=== PATIENT | male | born 1970 | race Caucasian/White ===

== ENCOUNTER → 2019-10-28 15:24 | Outpatient (BNVA) | payer BC, SELFPAY | PROVIDERS: PCP Internal Medicine Rheumatology; Referring Provider Nurse Practitioner Family; Visit Provider Internal Medicine Rheumatology | DX: M19.90 Unspecified osteoarthritis, unspecified site (principal); Z11.59 Encounter for screening for other viral diseases; Z79.899 Other long term (current) drug therapy; Z11.1 Encounter for screening for respiratory tuberculosis; M25.541 Pain in joints of right hand; M25.542 Pain in joints of left hand; M75.40 Impingement syndrome of unspecified shoulder; M67.88 Other specified disorders of synovium and tendon, other site; M67.979 Unspecified disorder of synovium and tendon, unspecified ankle and foot; R53.1 Weakness | CPT/HCPCS: 36415; 82085; 82306; 82550; 84550; 85651; 86140; 86431; 86480; 86704; 86803; 86812; 87340; 99204 ==

== ENCOUNTER 2019-10-31 14:44 | Outpatient (CLI) | payer SELFPAY ==
--- NOTE | 2019-10-31 14:51 | XR_ITS ---
WS: [id number] Left foot, 3 views, 10/31/2019 Clinical Data: inflammatory arthritis Comparison: None. Findings: No fractures or dislocations are seen. No bone destruction or erosion is noted. The joint spaces and soft tissues are normal. No periarticular demineralization or calcification is seen. There is no evidence of inflammatory arth ritis. XR/XR foot LT min 3V* [id number] Impression: Negative left foot.
--- NOTE | 2019-10-31 14:51 | XR_ITS ---
WS: [id number] Right hand, 3 views, 10/31/2019 Clinical Data: inflammatory arthritis Comparison: None. Findings: No fractures or dislocations are seen. The epiphyses are normal. The soft tissues are unremarkable. T he joint spaces are normal. No periarticular demineralization or calcification is seen. XR/XR hand RT min 3V* [id number] Impression: Negative right hand. No evidence of inflammatory arthritis.
--- NOTE | 2019-10-31 14:51 | XR_ITS ---
WS: [id number] Right foot, 3 views, 10/31/2019 Clinical Data: inflammatory arthritis Comparison: None. Findings: No fractures or dislocations are seen. No bone destruction or erosion is noted. The joint spaces and soft tissues are normal. No periarticular demineralization or calcification is seen. There is no evidence of inflammatory arth ritis. XR/XR foot RT min 3V* [id number] Impression: Negative right foot.
--- NOTE | 2019-10-31 14:51 | XR_ITS ---
WS: [id number] Chest 2 views, 10/31/2019 Clinical Data: inflammatory arthritis Comparison: PA and Lateral chest, 01/13/2014. Findings: No nodules, masses or effusions are seen. The heart is normal. The pulmonary vascularity is not increased. No pneumonia or pneumothorax is seen. XR/XR chest 2V* [id number] Impression: Negative chest.
--- NOTE | 2019-10-31 14:51 | XR_ITS ---
WS: [id number] Left hand, 3 views, 10/31/2019 Clinical Data: inflammatory arthritis Comparison: None. Findings: No fractures or dislocations are seen. The epiphyses are normal. The soft tissues are unremarkable. T he joint spaces are normal. No periarticular demineralization or calcification is seen. There is no evidence of inflammatory arth ritis. XR/XR hand LT min 3V* [id number] Impression: Negative left hand.
== END 2019-10-31 14:45 | disposition home or self-care (01) ==
LOC: RADWPI 14:51
PROVIDERS: PCP Nurse Practitioner Family; Visit Provider Internal Medicine Rheumatology
DX: M13.89 Other specified arthritis, multiple sites (principal)
CPT/HCPCS: 71046; 73130; 73630

== ENCOUNTER → 2019-11-06 15:29 | Outpatient (BNVA) | payer BC, SELFPAY | PROVIDERS: PCP Nurse Practitioner Family; Visit Provider Internal Medicine Rheumatology | DX: M25.50 Pain in unspecified joint (principal); R79.82 Elevated C-reactive protein (CRP); Z79.899 Other long term (current) drug therapy; M75.40 Impingement syndrome of unspecified shoulder; M67.88 Other specified disorders of synovium and tendon, other site | CPT/HCPCS: 36415; 85651; 86140; 99214 ==

== ENCOUNTER → 2019-12-04 11:00 | Outpatient (BNVA) | payer SELFPAY | PROVIDERS: PCP Nurse Practitioner Family; Visit Provider Nurse Practitioner | DX: I10 Essential (primary) hypertension (principal); M79.7 Fibromyalgia | CPT/HCPCS: 82607; 83540; 83735 ==

== ENCOUNTER → 2020-02-10 11:02 | Outpatient (BNVA) | payer SELFPAY | PROVIDERS: PCP Nurse Practitioner Family; Visit Provider Nurse Practitioner | DX: R19.7 Diarrhea, unspecified (principal) | CPT/HCPCS: 87205; 87506 ==

== ENCOUNTER → 2020-03-12 16:48 | Outpatient (BNVA) | payer SELFPAY | PROVIDERS: PCP Nurse Practitioner Family; Visit Provider Nurse Practitioner | DX: E55.9 Vitamin D deficiency, unspecified (principal); M25.50 Pain in unspecified joint; M79.7 Fibromyalgia | CPT/HCPCS: 82306; 85651 ==

== ENCOUNTER → 2020-09-28 09:37 | Outpatient (BNVA) | payer SELFPAY | PROVIDERS: PCP Nurse Practitioner Family; Visit Provider Nurse Practitioner | DX: I10 Essential (primary) hypertension (principal); E55.9 Vitamin D deficiency, unspecified; M79.7 Fibromyalgia | CPT/HCPCS: 80053; 82306; 84443; 85025 ==

== ENCOUNTER → 2021-03-16 09:51 | Outpatient (BNVA) | payer SELFPAY | PROVIDERS: PCP Nurse Practitioner Family; Visit Provider Dermatology | DX: Z01.89 Encounter for other specified special examinations (principal) ==

== ENCOUNTER → 2021-06-15 08:52 | Outpatient (BNVA) | payer SELFPAY | PROVIDERS: PCP Dermatology; Visit Provider Dermatology | DX: Z01.89 Encounter for other specified special examinations (principal) ==

== ENCOUNTER → 2021-10-07 09:56 | Outpatient (BNVA) | payer BC, SELFPAY | PROVIDERS: PCP Dermatology; Visit Provider Nurse Practitioner | DX: M79.7 Fibromyalgia (principal); I10 Essential (primary) hypertension; R00.0 Tachycardia, unspecified | CPT/HCPCS: 80053; 80061 ==

== ENCOUNTER → 2022-06-07 08:29 | Outpatient (BNVA) | payer SELFPAY | PROVIDERS: PCP Dermatology; Visit Provider Dermatology | DX: Z01.89 Encounter for other specified special examinations (principal); E78.2 Mixed hyperlipidemia; E55.9 Vitamin D deficiency, unspecified; M79.7 Fibromyalgia; I10 Essential (primary) hypertension; M25.50 Pain in unspecified joint; M75.40 Impingement syndrome of unspecified shoulder; R53.1 Weakness ==

== ENCOUNTER 2022-07-01 09:37 | Inpatient (IN) | payer BC, SELFPAY ==
[2022-07-01] VITALS (19 sets, daily range): BP systolic 89–114; BP diastolic 46–71; PULSE 83–106; RESP 13–17; TEMP 36.2–36.6; O2SAT 88–99; BMI 30.1
--- NOTE | 2022-07-01 10:06 | W.ED.GENADLT ---
Documented by User: Paty Siddiqui PA-C 07/01/22 13:36 HPI - General Adult General: Chief complaint: General Medical Stated complaint: no bwel moment and has not eaten since Monday. Time Seen by Provider: 07/01/22 10:05 Source: patient and family Mode of arrival: ambulatory Limitations: no limitations History of Present Illness: 51-year-old male presents to the ER today for abdominal pain x4 days. Patient reports he had loose stools and diarrhea last Monday and Monday. Patient reports he then felt little bit better Monday evening and ate to pretty good meals. Patient reports by Monday he was unable to have a bowel movement and was having increased abdominal pain. Patient reports he tried taking MiraLAX, Ex-Lax, stool softeners, enemas, suppositories and still could not have a bowel movement. Patient reports he is bloated. He reports he started dry heaving yesterday. Patient reports he has not eaten anything since Monday night. He reports he has been sipping on Gatorade and urinating normally. Patient reports he has had this before however typically stool softeners and Ex-Lax take care of it. Patient denies any fever or chills. He reports abdominal pain specifically in the right lower quadrant. Review of Systems General: Reports: 10 or more systems reviewed and unremarkable except in HPI and below PFSH ED PFSH: Medical History Arthralgia of both hands Encounter for screening for other viral diseases Enthesitis Generalized weakness Hyperlipidemia, mixed Hypertension Peroneal tendinosis Polyarthralgia 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 Surgical History No history of previous surgery Family History Father Cancer Mother Diabetes Denies family history of Rheumatoid arthritis Lupus Social History Smoking and tobacco status: former smoker Second hand smoke exposure: No Smoking risk assessment/counseling performed?: No Alcohol intake: never Desire information about alcohol rehabilitation?: No Counseling given: No Desire information about substance/drug rehabilitation?: No Counseling given: No Caregiver/support person: No Lives independently: Yes Household members: children Housing: House Marital status: Single Number of children: 1 service: No Current occupational status: unemployed History of recent travel: No Current gender identity: Male Physical Exam Const: COMMON NORMALS: average body habitus, patient oriented x3, no limitations, healthy appearing, alert and well nourished; apparent distress (pt appears uncomfortable) HENMT: COMMON NORMALS: normocephalic and atraumatic HEAD & SCALP: normocephalic and atraumatic Eye: COMMON NORMALS: conjunctivae normal CONJUNCTIVA: Yes conjunctivae normal Neck/C-Spine: COMMON NORMALS: full ROM and no lymphadenopathy Resp: COMMON NORMALS: normal respiratory effort, No retractions and clear to auscultation bilaterally AUSCULTATION: clear to auscultation bilaterally Cardio: COMMON NORMALS: regular rate, regular rhythm and No murmurs present (Cardio) RATE: regular rate RHYTHM: regular rhythm GI: AUSCULTATION: Yes Hypoactive bowel sounds present PALPATION: Yes Firmness to palpation present (GI) and Yes Tenderness to palpation present (GI) (RLQ, lower abdomen) Neuro: COMMON NORMALS: patient oriented x3 SENSORIUM/ORIENTATION: Yes alert Psych: COMMON NORMALS: mental status grossly normal, Normal thought process present and cooperative THOUGHT PROCESS: Normal thought process present Skin: COMMON NORMALS: no rashes or lesions noted and no wounds GENERAL SKIN EXAM: no rashes or lesions noted Course ED course: 51-year-old male presents to the ER today for no bowel movement x4 days. Patient reports increasing abdominal pain, specifically in the right lower quadrant. Patient reports this started with diarrhea on Monday and Monday. Patient reports some vomiting and dry heaves over the last 24 hours. He has not eaten since Monday. Patient denies any fevers. Given the distention and cysts right lower quadrant tenderness we will get a CT abdomen pelvis at this time. We will also do labs today. Reevaluation(s): Reevaluation #1: Patient's white count is 25,000 and creatinine is 3.7. I discussed this patient with Dr. Quintero. He recommends sepsis protocol at this time. Orders changed. We will do a CT abdomen pelvis without contrast Time: 11:29 Reevaluation #2: Radiologist Dr. Nicholas, patient has a acute appendicitis with her. He reports is also an ileus of the small bowel in that area. He does not see any abscess or drainable area but reports overall stranding and inflammation. Reports mild fluid in the pelvic area. Time: 11:57 Reevaluation #3: I spoke with Dr. Trujillo who will see patient in the ER and take him to surgery. He wants him to have 2 L total of fluid. Continue the Zosyn as started. Vital Signs: Vital signs: Vital Signs Temperature 97.3 F L 07/02/22 08:00 Pulse Rate 82 07/02/22 08:00 Respiratory Rate 18 07/02/22 08:00 Blood Pressure 133/69 07/02/22 09:42 Pulse Oximetry 96 07/02/22 08:00 Oxygen Delivery Me thod 07/02/22 08:00 Oxygen Flow Rate 2 07/01/22 20:00 Fraction of Inspir ed Oxygen 1 07/01/22 16:49 MDM - General Adult Medical Decision Making CT reveals a ruptured appendicitis. Patient has significantly elevated white count in addition to acute kidney injury/sepsis. Patient has been given 2 L of fluid in the ER. Dr. Mehta will take patient to surgery and only wants patient having the 2 L of fluid at this time. Patient appears comfortable currently. Patient is hypotensive but that has improved slightly with [address] Mehta will see patient in the ER before surgery. Lab Data : 07/02/22 04:02 07/02/22 04:02 Radiology Impressions Abdomen/Pelvis CT 07/01/22 10:14 IMPRESSION: 1. Perforated appendicitis RIGHT lower quadrant with surrounding inflammatory stranding and edema. Appendicoliths in the appendix. 2. No well-defined drainable fluid collection or abscess. 3. Proximal small bowel dilatation with air-fluid levels likely reactive adynamic ileus. Small bowel measures up to 3.9 cm in maximum dimension. Distal ileum appears decompressed. 4. Compressive atelectasis LEFT lower lobe.Correlation for pneumonia. 5. Indeterminant low-attenuation RIGHT renal lesion measuring 10 mm. This is too small to definitively characterize. This can be followed up with ultrasound or contrast-enhanced CT abdomen pelvis. 6. Grade 1 anterolisthesis L5 on S1 with chronic spondylolysis. Notified Paty Siddiqui PA-C at 07/01/2022 11:50 AM. Laboratory Results WBC 25.9 10^3/uL (4.0-10.0) H 07/01/22 10:13 RBC 5.16 10^6/uL (4.1-5.3) 07/01/22 10:13 Hgb 16.2 g/dL (11.7-16.6) 07/01/22 10:13 Hct 47.0 % (42.0-52.0) 07/01/22 10:13 MCV 91.1 fl (80-94) 07/01/22 10:13 MCH 31.4 pg (28.0-34.0) 07/01/22 10:13 MCHC 34.5 g/dL (30.0-36.0) 07/01/22 10:13 RDW 13.4 % (12.1-15.1) 07/01/22 10:13 Plt Count 345 10^3/cmm (130-400) 07/01/22 10:13 MPV 11.0 fL (7.4-10.4) H 07/01/22 10:13 Neut % (Auto) 86.4 % 07/01/22 10:13 Lymph % (Auto) 5.4 % 07/01/22 10:13 Bailey % (Auto) 7.2 % 07/01/22 10:13 Eos % (Auto) 0.2 % 07/01/22 10:13 Baso % (Auto) 0.1 % 07/01/22 10:13 Neut # (Auto) 22.32 10^3/uL (1.8-7.7) H 07/01/22 10:13 Lymph # (Auto) 1.4 10^3/uL (0.8-4.8) 07/01/22 10:13 Bailey # (Auto) 1.9 10^3/uL (0.2-0.9) H 07/01/22 10:13 Eos # (Auto) 0.1 10^3/uL (0.0-0.8) 07/01/22 10:13 Baso # (Auto) 0.0 10^3/uL (0.0-0.1) 07/01/22 10:13 Nucleated RBC % (auto) 0 % 07/01/22 10:13 Nucleated RBCs # 0.0 /100WBC 07/01/22 10:13 Specimen Type Arterial 07/01/22 11:17 Sample Site Radial, right 07/01/22 11:17 ABG pH 7.43 (7.35-7.45) 07/01/22 11:17 ABG pCO2 33.5 mmHg (35-45) L 07/01/22 11:17 ABG pO2 63.0 mmHg (80.0-100.0) L 07/01/22 11:17 ABG HCO3 22.0 mmol/L (22-26) 07/01/22 11:17 ABG O2 Saturation 92.2 07/01/22 11:17 ABG Base Excess -1.6 mmol/L (-2.0-2.0) 07/01/22 11:17 Bassam Test Pos 07/01/22 11:17 A-a O2 Gradient 6.1 mmHg (5-10) 07/01/22 11:17 Hematocrit 48.4 % (42-52) 07/01/22 11:17 Hgb O2 Saturation 90.9 % (95-100) L 07/01/22 11:17 Carboxyhemoglobin 1.2 %THgb (0.4-20.1) 07/01/22 11:17 Methemoglobin 0.2 % (0.4-1.5) L 07/01/22 11:17 Total Hemoglobin 15.8 g/dL (14-18) 07/01/22 11:17 Sodium 137.0 mmol/L (131-143) 07/01/22 11:17 Potassium 3.7 mmol/L (3.5-5.0) 07/01/22 11:17 Glucose 131.0 mg/dL (70-115) H 07/01/22 11:17 Ionized Calcium 1.1 mmol/L (1.1-1.4) 07/01/22 11:17 O2 Delivery Device Room air 07/01/22 11:17 FiO2 21.0 % 07/01/22 11:17 College Service Officer ID glc 07/01/22 11:17 Sodium 136 mmol/L (136-145) 07/01/22 10:13 Potassium 4.1 mmol/L (3.5-5.1) 07/01/22 10:13 Chloride 94 mmol/L (98-107) L 07/01/22 10:13 Carbon Dioxide 23 mmol/L (22-29) 07/01/22 10:13 Anion Gap 23.1 (5-19) H 07/01/22 10:13 BUN 74 mg/dL (6-20) H 07/01/22 10:13 Creatinine 3.7 mg/dL (0.7-1.2) H 07/01/22 10:13 GFR Calculation 17.5 mL/min (90-130) L 07/01/22 10:13 Glucose 137 mg/dL (65-115) H 07/01/22 10:13 Calculated Osmolality 306 mOsm/kg (285-295) H 07/01/22 10:13 Lactic Acid 1.8 mmol/L (0.5-2.2) 07/01/22 10:30 Calcium 9.2 mg/dL (8.5-10.5) 07/01/22 10:13 Total Bilirubin 0.5 mg/dL (0.15-1.2) 07/01/22 10:13 AST 8 U/L (0-40) 07/01/22 10:13 ALT 9 U/L (0-41) 07/01/22 10:13 Alkaline Phosphatase 94 U/L (40-130) 07/01/22 10:13 Total Protein 8.7 g/dL (6.6-8.7) 07/01/22 10:13 Albumin 3.7 g/dL (3.5-5.2) 07/01/22 10:13 Globulin 5.0 g/dL (1.3-4.6) H 07/01/22 10:13 Lipase 11 U/L (13-60) L 07/01/22 10:30 Critical Care Time Critical Care Time: Critical Care Time: No Discharge Plan Discharge Patient Disposition: Placed in Observation Admit Provider: Jc Trujillo Clinical Impression: Acute appendicitis with rupture, Acute kidney injury, Acute hypotension Coding Level of Care Code ED Extension Course Counselor for Chg Fwd Exam Comprehensive Documented by User: Luis Quintero DO 07/02/22 10:13 HPI - General Adult General: Chief complaint: General Medical Stated complaint: no bwel moment and has not eaten since Monday. Time Seen by Provider: 07/01/22 10:05 PFS ED PFSH: Medical History Arthralgia of both hands Encounter for screening for other viral diseases Enthesitis Generalized weakness Hyperlipidemia, mixed Hypertension Peroneal tendinosis Polyarthralgia 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 Surgical History No history of previous surgery Family History Father Cancer Mother Diabetes Denies family history of Rheumatoid arthritis Lupus Social History Smoking and tobacco status: former smoker Second hand smoke exposure: No Smoking risk assessment/counseling performed?: No Alcohol intake: never Desire information about alcohol rehabilitation?: No Counseling given: No Desire information about substance/drug rehabilitation?: No Counseling given: No Caregiver/support person: No Lives independently: Yes Household members: children Housing: House Marital status: Single Number of children: 1 service: No Current occupational status: unemployed History of recent travel: No Current gender identity: Male Course Vital Signs: Vital signs: Vital Signs Temperature 97.3 F L 07/02/22 08:00 Pulse Rate 82 07/02/22 08:00 Respiratory Rate 18 07/02/22 08:00 Blood Pressure 133/69 07/02/22 09:42 Pulse Oximetry 96 07/02/22 08:00 Oxygen Delivery Me thod 07/02/22 08:00 Oxygen Flow Rate 2 07/01/22 20:00 Fraction of Inspir ed Oxygen 1 07/01/22 16:49 MDM - General Adult Medical Decision Making CT reveals a ruptured appendicitis. Patient has significantly elevated white count in addition to acute kidney injury/sepsis. Patient has been given 2 L of fluid in the ER. Dr. Mehta will take patient to surgery and only wants patient having the 2 L of fluid at this time. Patient appears comfortable currently. Patient is hypotensive but that has improved slightly with [address] Mehta will see patient in the ER before surgery. Chart reviewed and patient discussed with midlevel. Agree with assessment and plan. Lab Data : 07/02/22 04:02 07/02/22 04:02 Radiology Impressions Abdomen/Pelvis CT 07/01/22 10:14 IMPRESSION: 1. Perforated appendicitis RIGHT lower quadrant with surrounding inflammatory stranding and edema. Appendicoliths in the appendix. 2. No well-defined drainable fluid collection or abscess. 3. Proximal small bowel dilatation with air-fluid levels likely reactive adynamic ileus. Small bowel measures up to 3.9 cm in maximum dimension. Distal ileum appears decompressed. 4. Compressive atelectasis LEFT lower lobe.Correlation for pneumonia. 5. Indeterminant low-attenuation RIGHT renal lesion measuring 10 mm. This is too small to definitively characterize. This can be followed up with ultrasound or contrast-enhanced CT abdomen pelvis. 6. Grade 1 anterolisthesis L5 on S1 with chronic spondylolysis. Notified Paty Siddiqui PA-C at 07/01/2022 11:50 AM. Laboratory Results WBC 25.9 10^3/uL (4.0-10.0) H 07/01/22 10:13 RBC 5.16 10^6/uL (4.1-5.3) 07/01/22 10:13 Hgb 16.2 g/dL (11.7-16.6) 07/01/22 10:13 Hct 47.0 % (42.0-52.0) 07/01/22 10:13 MCV 91.1 fl (80-94) 07/01/22 10:13 MCH 31.4 pg (28.0-34.0) 07/01/22 10:13 MCHC 34.5 g/dL (30.0-36.0) 07/01/22 10:13 RDW 13.4 % (12.1-15.1) 07/01/22 10:13 Plt Count 345 10^3/cmm (130-400) 07/01/22 10:13 MPV 11.0 fL (7.4-10.4) H 07/01/22 10:13 Neut % (Auto) 86.4 % 07/01/22 10:13 Lymph % (Auto) 5.4 % 07/01/22 10:13 Bailey % (Auto) 7.2 % 07/01/22 10:13 Eos % (Auto) 0.2 % 07/01/22 10:13 Baso % (Auto) 0.1 % 07/01/22 10:13 Neut # (Auto) 22.32 10^3/uL (1.8-7.7) H 07/01/22 10:13 Lymph # (Auto) 1.4 10^3/uL (0.8-4.8) 07/01/22 10:13 Bailey # (Auto) 1.9 10^3/uL (0.2-0.9) H 07/01/22 10:13 Eos # (Auto) 0.1 10^3/uL (0.0-0.8) 07/01/22 10:13 Baso # (Auto) 0.0 10^3/uL (0.0-0.1) 07/01/22 10:13 Nucleated RBC % (auto) 0 % 07/01/22 10:13 Nucleated RBCs # 0.0 /100WBC 07/01/22 10:13 Specimen Type Arterial 07/01/22 11:17 Sample Site Radial, right 07/01/22 11:17 ABG pH 7.43 (7.35-7.45) 07/01/22 11:17 ABG pCO2 33.5 mmHg (35-45) L 07/01/22 11:17 ABG pO2 63.0 mmHg (80.0-100.0) L 07/01/22 11:17 ABG HCO3 22.0 mmol/L (22-26) 07/01/22 11:17 ABG O2 Saturation 92.2 07/01/22 11:17 ABG Base Excess -1.6 mmol/L (-2.0-2.0) 07/01/22 11:17 Bassam Test Pos 07/01/22 11:17 A-a O2 Gradient 6.1 mmHg (5-10) 07/01/22 11:17 Hematocrit 48.4 % (42-52) 07/01/22 11:17 Hgb O2 Saturation 90.9 % (95-100) L 07/01/22 11:17 Carboxyhemoglobin 1.2 %THgb (0.4-20.1) 07/01/22 11:17 Methemoglobin 0.2 % (0.4-1.5) L 07/01/22 11:17 Total Hemoglobin 15.8 g/dL (14-18) 07/01/22 11:17 Sodium 137.0 mmol/L (131-143) 07/01/22 11:17 Potassium 3.7 mmol/L (3.5-5.0) 07/01/22 11:17 Glucose 131.0 mg/dL (70-115) H 07/01/22 11:17 Ionized Calcium 1.1 mmol/L (1.1-1.4) 07/01/22 11:17 O2 Delivery Device Room air 07/01/22 11:17 FiO2 21.0 % 07/01/22 11:17 College Service Officer ID glc 07/01/22 11:17 Sodium 136 mmol/L (136-145) 07/01/22 10:13 Potassium 4.1 mmol/L (3.5-5.1) 07/01/22 10:13 Chloride 94 mmol/L (98-107) L 07/01/22 10:13 Carbon Dioxide 23 mmol/L (22-29) 07/01/22 10:13 Anion Gap 23.1 (5-19) H 07/01/22 10:13 BUN 74 mg/dL (6-20) H 07/01/22 10:13 Creatinine 3.7 mg/dL (0.7-1.2) H 07/01/22 10:13 GFR Calculation 17.5 mL/min (90-130) L 07/01/22 10:13 Glucose 137 mg/dL (65-115) H 07/01/22 10:13 Calculated Osmolality 306 mOsm/kg (285-295) H 07/01/22 10:13 Lactic Acid 1.8 mmol/L (0.5-2.2) 07/01/22 10:30 Calcium 9.2 mg/dL (8.5-10.5) 07/01/22 10:13 Total Bilirubin 0.5 mg/dL (0.15-1.2) 07/01/22 10:13 AST 8 U/L (0-40) 07/01/22 10:13 ALT 9 U/L (0-41) 07/01/22 10:13 Alkaline Phosphatase 94 U/L (40-130) 07/01/22 10:13 Total Protein 8.7 g/dL (6.6-8.7) 07/01/22 10:13 Albumin 3.7 g/dL (3.5-5.2) 07/01/22 10:13 Globulin 5.0 g/dL (1.3-4.6) H 07/01/22 10:13 Lipase 11 U/L (13-60) L 07/01/22 10:30 Discharge Plan Discharge Patient Disposition: Placed in Observation Admit Provider: Jc Trujillo Clinical Impression: Acute appendicitis with rupture, Acute kidney injury, Acute hypotension Coding Level of Care Code ED Extension Course Counselor for Chg Fwd Exam Comprehensive
--- NOTE | 2022-07-01 10:14 | CT_ITS ---
WS: [id number] CT ABDOMEN PELVIS TECHNIQUE: Noncontrast CT of the abdomen and pelvis with coronal and sagittal reformatted images. CLINICAL INFORMATION: RLQ pain, no BM COMPARISON: None. DLP: 831.[address] scans at [facility] use at least one of these dose optimization techniques: automated e xposure control; mA and/or kV adjustment per patient size (includes targeted exams where dose is matc hed to clinical indication); or iterative reconstruction. FINDINGS: Inflammatory stranding and edema in the RIGHT lower quadrant about the appendix compatible with perforated appendicitis. Small appendicoliths. No well-defined drainable abscess or fluid collec tion. Trace free fluid in the RIGHT lower quadrant pelvis. Fluid dilatation with air-fluid levels involving the proximal small bowel likely due to adynamic ileu s. Terminal ileum and colon are decompressed. Normal noncontrast liver. Normal GE junction. Air-fluid level in the stomach. Compressive atelectasis LEFT lower lobe. Recommend correlation for pneumonia. Subsegmental atelectasis RIGHT lower lobe. Noncontrast pancreas is normal. Adrenal glands are normal. No hydronephrosis in either kidney. Indete rminant low-attenuation lesion upper pole RIGHT kidney may represent renal cyst but technically indet erminate. This measures approximately 10 mm. This can be followed up with ultrasound or contrast-enha nced CT. Grade 1 anterolisthesis L5 on S1 measuring 4 mm with bilateral chronic spondylolysis. Compressive ate lectasis LEFT lower lobe. Recommend correlation for pneumonia. Slight hazy groundglass infiltrates LE FT lower lobe. Subsegmental atelectasis RIGHT lower lobe. CT/CT abdomen pelvis wo con [id number] IMPRESSION: 1. Perforated appendicitis RIGHT lower quadrant with surrounding inflammatory stranding and edema. Appendicoliths in the appendix. 2. No well-defined drainable fluid collection or abscess. 3. Proximal small bowel dilatation with air-fluid levels likely reactive adyna al ileus. Small bowel measures up to 3.9 cm in maximum dimension. Distal ileum appears decompressed. 4. Compressive atelectasis LEFT lower lobe.Correlation for pneumonia. 5. Indeterminant low-attenuation RIGHT renal lesion measuring 10 mm. This is t oo small to definitively characterize. This can be followed up with ultrasound or contrast-enhanced CT abdomen pelvis. 6. Grade 1 anterolisthesis L5 on S1 with chronic spondylolysis. Notified Paty Siddiqui PA-C at 07/01/2022 11:50 AM.
[2022-07-01 10:38] LABS: Basophils % 0.1 %; Eosinophils # 0.1 10^3/uL (0.0-0.8); Eosinophils % 0.2 %; Hemoglobin 16.2 g/dL (11.7-16.6); Lymphocytes # 1.4 10^3/uL (0.8-4.8); Lymphocytes % 5.4 %; Mean Corpuscular HGB Conc 34.5 g/dL (30.0-36.0); Mean Corpuscular Hemoglobin 31.4 pg (28.0-34.0); Mean Corpuscular Volume 91.1 fl (80-94); Monocytes # 1.9 10^3/uL (0.2-0.9); Monocytes % 7.2 %; Neutrophils # 22.32 10^3/uL (1.8-7.7); Neutrophils % 86.4 %; Nucleated Red Blood Cells % 0 %; Platelet Count 345 10^3/cmm (130-400); Red Blood Count 5.16 10^6/uL (4.1-5.3); Red Cell Distribution Width 13.4 % (12.1-15.1); White Blood Count 25.9 10^3/uL (4.0-10.0)
[2022-07-01] MEDS: ondansetron 2 mg/ML SDV 2 mL 4 MG IVP ×2 (10:51→13:32)
[2022-07-01] MEDS: sodium chloride 0.9% 1,000 ML 999 ML IV (10:52)
[2022-07-01] MEDS: iohexol 300 mg/mL 50 mL Btl IV (10:54)
[2022-07-01 11:02] LABS: Alanine Aminotransferase 9 U/L (0-41); Albumin Level 3.7 g/dL (3.5-5.2); Alkaline Phosphatase 94 U/L (40-130); Anion Gap 23.1 (5-19); Aspartate Amino Transferase 8 U/L (0-40); Blood Urea Nitrogen 74 mg/dL (6-20); Calcium 9.2 mg/dL (8.5-10.5); Carbon Dioxide 23 mmol/L (22-29); Chloride 94 mmol/L (98-107); Glomerular Filtration Rate 17.5 mL/min (90-130); Glucose 137 mg/dL (65-115); Osmolality Calculated 306 mOsm/kg (285-295); Potassium 4.1 mmol/L (3.5-5.1); Sodium 136 mmol/L (136-145); Total Bilirubin 0.5 mg/dL (0.15-1.2); Total Protein 8.7 g/dL (6.6-8.7)
[2022-07-01 11:27] LABS: ABG PCO2 33.5 mmHg (35-45); ABG PH Result 7.43 (7.35-7.45); Alveolar-Arterial Oxygen Gradi 6.1 mmHg (5-10); Arterial Blood Gas Hematocrit 48.4 % (42-52); Base Excess ABG -1.6 mmol/L (-2.0-2.0); Blood Gas Allen Test Pos; Blood Gas Operator Identificat glc; Blood Gas Sample Site Radial, right; Blood Gas Sample Type Arterial; Carboxyhemoglobin 1.2 %THgb (0.4-20.1); HGB O2 Sat 90.9 % (95-100); Ionized Calcium Level - ABG 1.1 mmol/L (1.1-1.4); Methemoglobin 0.2 % (0.4-1.5); Oxygen Device ROOM AIR; Oxygen Saturation ABG 92.2; Potassium Level - ABG 3.7 mmol/L (3.5-5.0); Total Hemoglobin 15.8 g/dL (14-18)
[2022-07-01 11:38] LABS: Lactic Sepsis W/Reflex 1.8 mmol/L (0.5-2.2); Lipase 11 U/L (13-60)
[2022-07-01] MEDS: sodium chloride 0.9% 2,857.62 ML 2857.62 ML IV (11:45)
[2022-07-01] MEDS: fentaNYL 50 mcg/mL INJ 2mL IVP (12:14)
[2022-07-01] MEDS: piperacillin-tazobactam 3.375 GM in sodium chloride 0.9% (plus) 50 ML IV ×2 (12:14→18:07)
--- NOTE | 2022-07-01 13:30 | P.HP_ITS ---
Providers/Chief Complaint Admitting Physician: Jc Trujillo Primary Care Provider: TIFFANY Diaz-C Chief Complaint: no bwel moment and has not eaten since Monday. History of Present Illness Shilpa Coombs is a 51 year old male Who complains of abdominal pain since Monday. Pain is up to 10/10, located in the right lower quadrant. He has similar episodes of pain before, however, it was never as bad. He also complains of episodes of chills constantly. Not sure about his depression. No bowel movement since Monday. He has constant nausea and vomited today. He was not able to drink a lot of fluids because of the persistent nausea. Because his condition did not improve he decided to seek medical attention. Past medical history significant for fibromyalgia. He has pain all over the body. He cannot point to a specific place, it seems to be randomly all over the body. History of hypertension. Denies any other medical problems. Never had any surgeries. Not allergic to any medications. Specifically denies chest pain, shortness of breath Stating that he was urinating well, however, urine was dark in color. Medications/Allergies Home Medications Medication Instructions Recorded Confirmed Last Taken Type carvedilol 25 mg tablet (Coreg) 25 mg PO Q12H #180 tabs 04/14/22 07/01/22 07/01/22 Rx fenofibrate nanocrystallized 145 145 mg PO DAILY #90 tabs 04/14/22 07/01/22 07/01/22 Rx mg tablet (Tricor) milnacipran 50 mg tablet (Savella) 50 mg PO BID #180 tabs 04/14/22 07/01/22 07/01/22 Rx pregabalin 100 mg capsule (Lyrica) 100 mg PO BID #180 caps 04/14/22 07/01/22 07/01/22 Rx valsartan 320 mg tablet (Diovan) 320 mg PO DAILY #90 tabs 04/14/22 07/01/22 07/01/22 Rx ascorbic acid (vitamin C) 500 mg 500 mg PO DAILY 07/01/22 07/01/22 07/01/22 History tablet (Vitamin C) cholecalciferol (vitamin D3) 50 50 mcg PO DAILY 07/01/22 07/01/22 07/01/22 History mcg (2,000 unit) capsule (Vitamin D3) vitamin B complex 1 tab PO DAILY 07/01/22 07/01/22 07/01/22 History zinc acetate 25 mg (zinc) capsule 25 mg PO DAILY 07/01/22 07/01/22 07/01/22 His tory Allergies Allergy/AdvReac Type Severity Reaction Status Date / Time No Known Allergies Allergy Verified 07/01/22 10:34 PFSH Acute PFSH: Medical History Arthralgia of both hands Encounter for screening for other viral diseases Enthesitis Generalized weakness Hyperlipidemia, mixed Hypertension Peroneal tendinosis Polyarthralgia 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 Surgical History No history of previous surgery Family History Father Cancer Mother Diabetes Denies family history of Rheumatoid arthritis Lupus Social History Smoking and tobacco status: former smoker Second hand smoke exposure: No Smoking risk assessment/counseling performed?: No Alcohol intake: never Desire information about alcohol rehabilitation?: No Counseling given: No Desire information about substance/drug rehabilitation?: No Counseling given: No Caregiver/support person: No Lives independently: Yes Household members: children Housing: House Marital status: Single Number of children: 1 service: No Current occupational status: unemployed History of recent travel: No Current gender identity: Male Vitals/I&O/Wt Last Vital Signs Temp 97.7 F 07/01/22 09:57 Pulse 102 H 07/01/22 11:53 Resp 16 07/01/22 12:14 BP 114/71 07/01/22 12:20 Pulse Ox 93 07/01/22 12:20 O2 Del Method 07/01/22 11:53 06/30/22 07/01/22 07/01/22 22:59 06:59 14:59 Intake Total 1000 / 1000 Balance 1000 / 1000 Weight last 48 hrs Weight 210 lb Physical Exam Narrative: Normal general: [] Psych: [AAOx3] Eyes: [sclerae are white] Head/ENT: [normocephalic, symmetric] CV: [regular] pulse, [tachychardic], no JVD Lungs: [symmetrical chest rise] Abdomen: [soft, ND] tender to palpation in the right lower quadrant. Minimal peritoneal signs only in the right lower quadrant, the rest of the abdomen does not have peritoneal signs Ext: [no obvious traumatic deformities] Skin: warm Data : 07/01/22 10:13 07/01/22 10:13 Micro: Microbiology 07/01/22 13:03 Blood Culture - Preliminary Blood SPECIMEN COLLECTED A&P Assessment and plan (1) Acute appendicitis with rupture: (2) Acute kidney injury: (3) Acute hypotension: (4) Hyperlipidemia, mixed: (5) Tachycardia: (6) Fibromyalgia muscle pain: (7) Hypertension: Qualifiers: Hypertension type: essential hypertension Qualified Code(s): I10 - Essential (primary) hypertension Plan I personally reviewed CT scan. Consistent with a lot of inflammation and stranding in the right lower quadrant, consistent with acute appendicitis, possibly perforated. Acute kidney injury, most likely dehydration secondary to fever and low fluid intake secondary to persistent severe nausea Mild hypotension and tachycardia on admission, responded well to fluid administration, related to dehydration. Natural history, management of acute appendicitis was discussed with the patient and his multiple family members. I explained that the best course of action is to proceed with laparoscopic or open appendectomy. I explained that if appendix is perforated, he has a high chances of intra-abdominal abscess after the procedure and will require longer hospital stay to receive antibiotics through the vein. Risks and benefits of surgery were discussed including infection, bleeding, damage to surrounding structures, intra-abdominal abscess, bowel leak, possible need for a colectomy, complications related to anesthesia. The patient expressed understanding and agreed to proceed with surgery. -I gave him a second liter of IV fluids. We will keep him on a maintenance of 150 with intermittent boluses, will monitor urine output, continue Zosyn IV, restart home medications after surgery -Admit for observation, may require longer hospital stay in case of appendiceal perforation Attestations Medical Necessity Statement*: Acute appendicitis, acute appendicitis, need for surgery Coding Level of Care Code Acute Grinder Hand for [facility] Fwd Diagnoses Acute appendicitis with rupture K35.32 Acute kidney injury N17.9 Acute hypotension I95.9 Hyperlipidemia, mixed E78.2 Tachycardia R00.0 Fibromyalgia muscle pain M79.7 Hypertension I10 Hypertension type: essential hypertension
--- NOTE | 2022-07-01 13:48 | P.ANESASSM_ITS ---
Pre-Anesthetic Assessment Height/Weight: Height 1.78 m Weight 95.254 kg Temp Pulse Resp BP Pulse Ox O2 Del Method 97.7 F 102 H 16 114/71 93 07/01/22 09:57 07/01/22 11:53 07/01/22 12:14 07/01/22 12:20 07/01/22 12:20 07/01/22 11:53 Preop Diagnosis: appy Operation Date: 07/01/22 12:55 Proposed Procedures p Laparoscopic Appendectomy(Not Applicable) - Jc Trujillo MD Familial anesthetic complications: none Was Beta Lashonda taken within 24 hours: Yes Was Clonidine taken within 24 hours: N/A Last intake: Intake Last Liquid Date 07/01/22 Last Liquid Time 10:15 Last Solid Date 06/28/22 Last Solid Time 09:00 Last Intake: 10:30 Social Tobacco and No alcohol 1ppd pack years Exam alert, oriented x 3, clear to auscultation bilaterally and regular rate & rhythm Airway Submandibular: within normal limits Cervical ROM: within normal limits Mallampati: Class II Dentition: full (poor multiple missing, decayed) Pulmonary None reported CV/HEM Arrythmia (tachcardia) and Hypertension None reported Hepatic None reported GI Gastroesophageal Reflux Disease Metabolic None reported Musc/skel Lower Back Pain and Osteoarthritis/DJD Neuropsych None reported Anesthetic Plan ASA status: 3 Anesthesia: General Risk of > 500 ml blood loss (7ml/kg in children): Yes, adequate IV access and fluids planned Medications/Allergies Home Medications Medication Instructions Recorded Confirmed Last Taken Type carvedilol 25 mg tablet (Coreg) 25 mg PO Q12H #180 tabs 04/14/22 07/01/22 07/01/22 Rx fenofibrate nanocrystallized 145 145 mg PO DAILY #90 tabs 04/14/22 07/01/22 07/01/22 Rx mg tablet (Tricor) milnacipran 50 mg tablet (Savella) 50 mg PO BID #180 tabs 04/14/22 07/01/22 07/01/22 Rx pregabalin 100 mg capsule (Lyrica) 100 mg PO BID #180 caps 04/14/22 07/01/22 07/01/22 Rx valsartan 320 mg tablet (Diovan) 320 mg PO DAILY #90 tabs 04/14/22 07/01/22 1 Rx ascorbic acid (vitamin C) 500 mg 500 mg PO DAILY 07/01/22 07/01/22 07/01/22 History tablet (Vitamin C) cholecalciferol (vitamin D3) 50 50 mcg PO DAILY 07/01/22 07/01/22 07/01/22 H istory mcg (2,000 unit) capsule (Vitamin D3) vitamin B complex 1 tab PO DAILY 07/01/22 07/01/22 07/01/22 History zinc acetate 25 mg (zinc) capsule 25 mg PO DAILY 07/01/22 07/01/22 07/01/22 History Allergies Allergy/AdvReac Type Severity Reaction Status Date / Time No Known Allergies Allergy Verified 07/01/22 10:34 [facility] Anesthesia Medical History Arthralgia of both hands Encounter for screening for other viral diseases Enthesitis Generalized weakness Hyperlipidemia, mixed Hypertension Peroneal tendinosis Polyarthralgia 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 Surgical History No history of previous surgery Family History Father Cancer Mother Diabetes Denies family history of Rheumatoid arthritis Lupus Social History Smoking and tobacco status: former smoker Second hand smoke exposure: No Smoking risk assessment/counseling performed?: No Alcohol intake: never Desire information about alcohol rehabilitation?: No Counseling given: No Desire information about substance/drug rehabilitation?: No Counseling given: No Caregiver/support person: No Lives independently: Yes Household members: children Housing: House Marital status: Single Number of children: 1 service: No Current occupational status: unemployed History of recent travel: No Current gender identity: Male Data Anesthesia : 07/01/22 10:13 07/01/22 10:13 Short CBC 07/01/22 Range/Units 10:13 WBC 25.9 H (4.0-10.0) 10^3/uL Hgb 16.2 (11.7-16.6) g/dL Hct 47.0 (42.0-52.0) % MCV 91.1 (80-94) fl Plt Count 345 (130-400) 10^3/cmm Neut % (Auto) 86.4 % Neut # (Auto) 22.32 H (1.8-7.7) 10^3/uL BMP 07/01/22 10:13 Sodium 136 Potassium 4.1 Chloride 94 L Carbon Dioxide 23 BUN 74 H Creatinine 3.7 H Glucose 137 H Calcium 9.2 Liver Function 07/01/22 Range/Units 10:13 Total Bilirubin 0.5 (0.15-1.2) mg/dL AST 8 (0-40) U/L ALT 9 (0-41) U/L Alkaline Phosphatase 94 (40-130) U/L Albumin 3.7 (3.5-5.2) g/dL ABG 07/01/22 11:17 Specimen Type Arterial Sample Site Radial, right ABG pH 7.43 ABG pCO2 33.5 L ABG pO2 63.0 L ABG HCO3 22.0 ABG O2 Saturation 92.2 ABG Base Excess -1.6 A-a O2 Gradient 6.1 O2 Delivery Device Room air FiO2 21.0 Microbiology 07/01/22 13:03 Blood Culture - Preliminary Blood SPECIMEN COLLECTED Cardiac Studies: No Data to Display
--- NOTE | 2022-07-01 15:18 | PC.NURSE ---
Called to update family of pt procedure status.
--- NOTE | 2022-07-01 16:02 | P.OP_ITS ---
Operative Report Date of procedure: July 01, 2022 Pre-op diagnosis: Preoperative diagnosis: Acute appendicitis Postoperative diagnosis: Acute appendicitis, perforated. Intra-abdominal abscess Procedure: Laparoscopic appendectomy (CPT 06767). Drainage of intra-abdominal abscess Surgeon: Jc Trujillo MD, VI Start/End time: please, see nursing documentation. [employer] Dispatcher: none Anesthesia: General Endotracheal Anesthesiologist/TESTING AND REGULATING CHIEF: please, see anesthesia documentation. EBL, ml: 2 ml Specimen: appendix, submitted to pathology Complications: none Findings: If there was a periappendicular abscess, 50 to 50 mL of pus. Appendix was inflamed and perforated. There were multiple inflammatory adhesions between small bowel loops as well as small bowel loops and abdominal wall. All adhesions were taken down bluntly. All pus was carefully aspirated. Abdomen was irrigated with 3 L of saline. Drain was left in the pelvis and right lower quadrant []_ Indications: Clinical picture of acute appendicitis confirmed by a CT scan. []_ We discussed the natural course of the disease and indications for laparoscopic appendectomy, including risks and benefits of a surgical procedure, including infection, bleeding, damage to surrounding tissue, intraabdominal abscess, hernia at the incision site, bowel obstruction, bowel leak, deep venous thrombosis and pulmonary embolism, and . The patient agreed to proceed with laparoscopic appendectomy and signed an informed consent. Details of the procedure: The patient was identified in the holding area and brought to the operating room and positioned supine on the operating table. Sequential compression devices were applied to bilateral lower extremities to prevent deep venous thromboembolism. Subsequently, general endotracheal anesthesia was initiated without any complications. The surgical area was prepped and draped in a regular sterile fashion. TIME OUT: Immediately prior to procedure, time out was performed to include correct patient, agreement on the procedure to be performed, correct side, site, position, accurate procedure consent, relevant images, antibiotics, fluids, safety precautions, and availability of any special implants that might be required. The skin was anesthetized with Marcaine and periumbilical incision was made and carried down to the fascia. The umbilical stalk was grasped with a Finn clamp and lifted up. The fascia was incised vertically through the linea alba. The patient had a very small umbilical hernia. Hernia sac was opened and the content of the hernia was preperitoneal sac. It was reduced into the abdomen. Two 0-Vicryl stay sutures were placed. The absence of adhesions was confirmed with a finger swipe. A balloon trocar was placed and the abdomen was insufflated to 15 mm Hg. A 10 mm 30 degree angle camera was introduced into the abdomen. Additional 5 mm trocars were placed under direct vision: one in the midline 2 cm above the pubis, second in the left lower quadrant lateral to the rectus muscle. All the trocar sites were infiltrated with local anesthetic from skin to peritoneum before the insertion. The appendix was located behind the cecum, it was inflamed, states it was gangrenous with a perforation. It was grasped with a laparoscopic [place] clamp and retracted upward to expose the mesoappendix. The mesentery of the appendix was divided with Ligasure. There was no bleeding. Then the Vicryl endoloop was tied around the base of the appendix. The appendix was divided 7mm distal to the endoloop. The appendix was placed in the Endocatch bag. The operative field was irrigated with saline, 3 L, inspected and good hemostasis was confirmed. All the irrigation fluid was aspirated. Both 5mm trocars were removed under direct vision. There was no bleeding. Specimen was removed in the bag through umbilical incision. The fascia at the umbilical incision was closed with [four] interrupted 0-Vicryl sutures. Then the wound was irrigated with saline and injected with Marcaine. Skin incisions were closed primarily with 4-0 Monocryl. Steristrips were applied. The needle, instrument and sponge counts were correct x 2. The patient tolerated the procedure well, was extubated in the OR and was transferred to the recovery in stable condition.
--- NOTE | 2022-07-01 16:16 | XRR_ITS ---
PROCEDURE INFORMATION: Exam: XR Abdomen Exam date and time: 07/01/2022 4:29 PM Age: 51 years old Clinical indication: Device placement; Gi device; Nasogastric tube; Additional info: Confirm ngt location. Ileus. TECHNIQUE: Imaging protocol: Radiologic exam of the abdomen. Views: Frontal supine view of the abdomen. 1 View. COMPARISON: CT abdomen pelvis wo con [id number] 07/01/2022 11:27 AM FINDINGS: Tubes, catheters and devices: Enteric tube tip below the diaphragm over the gastric bubble. Gastrointestinal tract: Multiple dilated small bowel loops measuring up to 5.3 cm suggestive of an ileus or possible obstruction depending on the clinical scenario. Bones/joints: Unremarkable. XR/XR abdomen 1V* [id number] IMPRESSION: 1. Enteric tube tip below the diaphragm over the gastric bubble. 2. Multiple dilated small bowel loops measuring up to 5.3 cm suggestive of an ileus or possible obstruction depending on the clinical scenario.
--- NOTE | 2022-07-01 16:53 | ANE.PACU2 ---
Inpatient post-anesthesia follow up: Airway intact: Yes Vital signs: Temperature 97.1 F Pulse Rate 88 Respiratory Rate 17 Blood Pressure 101/53 Pulse Oximetry 98 Oxygen Delivery Me thod Nasal Cannula Oxygen Flow Rate 5 Fraction of Inspir ed Oxygen Hydration adequate: Yes Nausea and vomiting: No Pain level: 3 Mental status: Baseline
--- NOTE | 2022-07-01 17:22 | PC.NURSE ---
Per Dr. Reed reschedule heparin for 0.
[2022-07-01] MEDS: docusate sodium 100 mg Capsule PO (18:07)
[2022-07-01] MEDS: sennosides 8.6 mg Tablet 17.2 MG PO (20:36)
[2022-07-01] MEDS: sodium chloride 0.9% 1,000 ML 150 ML IV (20:37)
[2022-07-01] MEDS: heparin 5,000 unit/mL INJ 1 mL 5000 UNIT SUBCUT (20:37)
[2022-07-01] MEDS: pregabalin 100 mg Capsule PO (20:50)
[2022-07-02] VITALS (7 sets, daily range): BP systolic 117–159; BP diastolic 66–87; PULSE 82–101; RESP 10–18; TEMP 36.3–36.6; O2SAT 92–97
[2022-07-02] MEDS: piperacillin-tazobactam 3.375 GM in sodium chloride 0.9% (plus) 50 ML IV ×3 (01:49→17:55)
[2022-07-02 04:19] LABS: Basophils % 0.2 %; Hematocrit 36.7 % (42.0-52.0); Hemoglobin 12.7 g/dL (11.7-16.6); Lymphocytes # 0.7 10^3/uL (0.8-4.8); Lymphocytes % 3.9 %; Mean Corpuscular HGB Conc 34.6 g/dL (30.0-36.0); Mean Corpuscular Hemoglobin 32.5 pg (28.0-34.0); Mean Corpuscular Volume 93.9 fl (80-94); Mean Platelet Volume 11.1 fL (7.4-10.4); Monocytes % 5.3 %; Neutrophils # 17.26 10^3/uL (1.8-7.7); Neutrophils % 89.8 %; Nucleated Red Blood Cells % 0 %; Platelet Count 300 10^3/cmm (130-400); Red Blood Count 3.91 10^6/uL (4.1-5.3); Red Cell Distribution Width 13.8 % (12.1-15.1); White Blood Count 19.2 10^3/uL (4.0-10.0)
[2022-07-02] MEDS: sodium chloride 0.9% 1,000 ML 150 ML IV ×3 (04:21→16:53)
[2022-07-02 04:45] LABS: Anion Gap 16.1 (5-19); Blood Urea Nitrogen 63 mg/dL (6-20); Calcium 7.9 mg/dL (8.5-10.5); Carbon Dioxide 22 mmol/L (22-29); Chloride 107 mmol/L (98-107); Glomerular Filtration Rate 33.7 mL/min (90-130); Glucose 142 mg/dL (65-115); Magnesium 2.6 mg/dL (1.7-2.3); Osmolality Calculated 312 mOsm/kg (285-295); Phosphorus 3.3 mg/dL (2.5-4.5); Potassium 4.1 mmol/L (3.5-5.1); Sodium 141 mmol/L (136-145)
--- NOTE | 2022-07-02 07:12 | XRR_ITS ---
PROCEDURE INFORMATION: Exam: XR Abdomen Exam date and time: 07/02/2022 8:12 AM Age: 51 years old Clinical indication: Abdominal pain; Generalized; Prior surgery; Additional info: Ileus TECHNIQUE: Imaging protocol: Radiologic exam of the abdomen. Views: Frontal supine view of the abdomen. 1 View. COMPARISON: CR XR abdomen 1V* [id number] 07/01/2022 4:29 PM FINDINGS: Tubes, catheters and devices: NG tube terminates in the region of the gastric body. Surgical drain is seen in the pelvis. Gastrointestinal tract: Similar dilation of small bowel loops in the central abdomen. Bones/joints: Unremarkable. XR/XR abdomen 1V* [id number] IMPRESSION: 1. Similar dilation of small bowel loops in the central abdomen. 2. NG tube terminates in the region of the gastric body.
[2022-07-02] MEDS: acetaminophen-codeine 120-12 mg/5 mL UDC 10 ML PO (09:41)
[2022-07-02] MEDS: losartan 50 mg Tablet 100 MG PO (09:42)
[2022-07-02] MEDS: ascorbic acid 500 mg Tablet PO (09:42)
[2022-07-02] MEDS: pregabalin 100 mg Capsule PO ×2 (09:42→17:54)
[2022-07-02] MEDS: carvedilol 25 mg Tablet PO ×2 (09:42→16:52)
[2022-07-02] MEDS: fenofibrate 145 mg Tablet PO (09:43)
--- NOTE | 2022-07-02 09:55 | P.PN_ITS ---
Subjective Subjective: He is doing well. Abdominal pain is well controlled. He passed gas several times. NG tube outputs is to 300 overnight. Slightly bilious. Urine output is good, serum creatinine went down. Afebrile. Sequential compression devices were not connected to the pump this a.m. Discussed with the nursing staff. Vitals/I&O/Wt Last Vital Signs Temp 97.3 F L 07/02/22 08:00 Pulse 82 07/02/22 08:00 Resp 18 07/02/22 08:00 BP 133/69 07/02/22 09:42 Pulse Ox 96 07/02/22 08:00 O2 Del Method 07/02/22 08:00 O2 Flow Rate 2 07/01/22 20:00 FiO2 1 07/01/22 16:49 07/01/22 07/02/22 07/02/22 22:59 06:59 14:59 Intake Total 1250 / 5015.24 1050 / 6065.24 Output Total 1000 / 1000 1000 / 2000 Balance 250 / 4015.24 50 / 4065.24 Weight last 48 hrs Weight 213 lb 12.8 oz Weight 210 lb Physical Exam Narrative: No acute distress. Comfortable. NG tube in place. Slightly bilious output. Unlabored breathing. Abdomen softly distended, tender to palpation around incisions, no peritoneal signs. Bowel sounds are very slow and distant. Drain output is serosanguineous, cloudy Urinary Catheter Management: Valle: Cath Placed During This Visit: yes Reason for Continuing Indwelling Catheter: Other Urinary Catheter Date of Insertion: 07/01/22 Urinary Catheter Time of Insertion: 14:15 Data : 07/02/22 04:02 07/02/22 04:02 Micro: Microbiology 07/01/22 14:26 Urine Culture - Preliminary Urine Catheterized 07/01/22 13:03 Blood Culture - Preliminary Blood SPECIMEN COLLECTED A&P Assessment and plan (1) Acute appendicitis with rupture: (2) Acute kidney injury: (3) Acute hypotension: (4) Hyperlipidemia, mixed: (5) Tachycardia: (6) Fibromyalgia muscle pain: (7) Hypertension: Qualifiers: Hypertension type: essential hypertension Qualified Code(s): I10 - Essential (primary) hypertension Plan Decrease IV fluid rate, remove Valle, KUB showed ileus, keep NG tube for today. Okay for sips, lozenges, ice chips. N.p.o. otherwise. Ambulation. Repeat KUB tomorrow a.m. Labs tomorrow. Heparin for DVT prophylaxis. Attestations Medical Necessity Statement*: Appendicitis Coding Level of Care Code Acute Agricultural Commodities Inspector for [facility] Fwd Diagnoses Acute appendicitis with rupture K35.32 Acute kidney injury N17.9 Acute hypotension I95.9 Hyperlipidemia, mixed E78.2 Tachycardia R00.0 Fibromyalgia muscle pain M79.7 Hypertension I10 Hypertension type: essential hypertension
--- NOTE | 2022-07-02 14:10 | PC.NURSE ---
0900 med pass, pt home med (Savella)was dropped on the floor this nurse asked pt if it was ok to use another pill from pill bottle. Pt agreed. Pill that was dropped on the floor was wasted in the sharp container,visualized by pt. Pt asked if home med could be sent to pharmacy to get a scan label. Pt stated, I would rather not let the pills out of my sight because they are a controlled substance according to the pharmacy. This nurse documented med given instead of doing a scan. Pt meds were crushed and given via NGT d/t orders given verbally from the physician this am. Physician did say patient may have popsicles and sips of water only. NGT was clamped for short period for medicine. Pt did complain of some stomach pain after meds were pushed slowly through NGT. Minimal water was given with meds with maximum water used of 120mL d/t liquid meds and dissolving medication and flush. Patient reported stomach pain had resolved shortly after meds were given. Pt used bedside commode with no gas passed per rectum as reported by patient. Patient up to chair with NGT suction set to low intermittent. No reports of pain. Pt refused noon scheduled dose of tylenol w codeine and reported he thinks he did not tolerate that very well. Patient eating popsicle. This nurse made some tea for the family member at the bedside. Family and patient did not report needing anything as nurse exited the room. Both patient and family member encouraged to notify staff if the need for anything arises.
[2022-07-02] MEDS: heparin 5,000 unit/mL INJ 1 mL 5000 UNIT SUBCUT ×2 (14:37→19:39)
[2022-07-02 14:49] LABS: Add Urine Microscopic? YES; Bilirubin Urine Neg (Negative); Blood Urine 3+ (Negative); Glucose Urine UA Norm (Normal); Ketones Urine Negative (Negative); Leukocyte Esterase Urine 1+ (Negative); Nitrate Urine Negative (Negative); Protein Urine Neg (Negative); RBC Urine 15-25 /hpf (0-2); Specific Gravity, Urine 1.015 (1.005-1.030); Urine Appearance Hazy (CLEAR); Urine Color Yellow (Yellow); Urobilinogen Urine Neg (Negative); pH Urine 5 (5-7)
[2022-07-02 14:50] LABS: WBC Urine 15-25 /hpf (0-5)
[2022-07-02 14:51] LABS: Add Urine Culture? Yes
--- NOTE | 2022-07-02 19:45 | PC.NURSE ---
Patient asking for something for heartburn/indigestion. Dr. Sahni notified. Protonix ordered.
[2022-07-02] MEDS: pantoprazole 40 mg SDV IVP (20:28)
[2022-07-02 21:03] LABS: Glucose Point of Care 112 mg/dL (70-110)
--- NOTE | 2022-07-02 22:40 | PC.NURSE ---
Canister from NG suction noted to be red at this time. Was brown previously. Patient has red powerade at bedside and stated that he had drank some. Patient educated that he is able to have sips and chips, but to not intake large amounts of fluids. Patient verbalized understanding.
[2022-07-03] VITALS: BP 131/80; PULSE 92; RESP 10; TEMP 36.5; O2SAT 93
[2022-07-03] MEDS: sodium chloride 0.9% 1,000 ML 125 ML IV ×2 (00:26→09:55)
[2022-07-03] MEDS: piperacillin-tazobactam 3.375 GM in sodium chloride 0.9% (plus) 50 ML IV ×3 (01:32→18:00)
[2022-07-03 04:00] VITALS: BP 138/76; PULSE 88; RESP 18; TEMP 36.6; O2SAT 95
[2022-07-03 04:11] LABS: Basophils % 0.2 %; Eosinophils # 0.2 10^3/uL (0.0-0.8); Eosinophils % 1.2 %; Hematocrit 38.4 % (42.0-52.0); Hemoglobin 12.8 g/dL (11.7-16.6); Lymphocytes # 1.7 10^3/uL (0.8-4.8); Lymphocytes % 11.4 %; Mean Corpuscular HGB Conc 33.3 g/dL (30.0-36.0); Mean Corpuscular Hemoglobin 31.6 pg (28.0-34.0); Mean Corpuscular Volume 94.8 fl (80-94); Mean Platelet Volume 11.7 fL (7.4-10.4); Monocytes # 1.7 10^3/uL (0.2-0.9); Monocytes % 10.9 %; Neutrophils # 11.44 10^3/uL (1.8-7.7); Neutrophils % 75.6 %; Nucleated Red Blood Cells % 0 %; Platelet Count 372 10^3/cmm (130-400); Red Blood Count 4.05 10^6/uL (4.1-5.3); Red Cell Distribution Width 13.8 % (12.1-15.1); White Blood Count 15.1 10^3/uL (4.0-10.0)
[2022-07-03 04:39] LABS: Anion Gap 11.7 (5-19); Blood Urea Nitrogen 38 mg/dL (6-20); Carbon Dioxide 27 mmol/L (22-29); Chloride 112 mmol/L (98-107); Glomerular Filtration Rate 71.1 mL/min (90-130); Glucose 103 mg/dL (65-115); Magnesium 2.7 mg/dL (1.7-2.3); Osmolality Calculated 313 mOsm/kg (285-295); Phosphorus 1.7 mg/dL (2.5-4.5); Potassium 3.7 mmol/L (3.5-5.1); Sodium 147 mmol/L (136-145)
[2022-07-03] MEDS: heparin 5,000 unit/mL INJ 1 mL 5000 UNIT SUBCUT (04:52)
[2022-07-03] MEDS: acetaminophen-codeine 120-12 mg/5 mL UDC 10 ML PO (04:55)
[2022-07-03] MEDS: carvedilol 25 mg Tablet PO ×2 (04:56→17:28)
--- NOTE | 2022-07-03 06:00 | XRR_ITS ---
PROCEDURE INFORMATION: Exam: XR Abdomen Exam date and time: 07/03/2022 6:03 AM Age: 51 years old Clinical indication: Obstruction/ileus. TECHNIQUE: Imaging protocol: Radiologic exam of the abdomen. Views: Frontal supine view of the abdomen. 1 View. COMPARISON: CR (ABDOMEN, ) 07/02/2022 8:12 AM FINDINGS: Tubes, catheters and devices: A nasogastric tube is present with tip in the gastric body. A pelvic drain is seen. Gastrointestinal tract: There are numerous dilated loops of small bowel. There is gas distending the ascending and transverse colon with transition to narrow caliber in the distal descending colon. This could reflect colonic obstruction or ileus; favor ileus given recent perforated appendicitis. Intraperitoneal space: No gross free air. Bones/joints: No gross acute fracture. XR/XR abdomen 1V* [id number] IMPRESSION: There are numerous dilated loops of small bowel. There is gas distending the ascending and transverse colon with transition to narrow caliber in the distal descending colon. This could reflect colonic obstruction or ileus; favor ileus given recent perforated appendicitis.
[2022-07-03 08:00] VITALS: BP 152/86; PULSE 86; RESP 18; TEMP 36.6; O2SAT 94
--- NOTE | 2022-07-03 10:34 | P.PN_ITS ---
Subjective Subjective: No acute events overnight. Pain continues to improve. Afebrile. Passing very little gas. Serum creatinine is down to normal. The patient is drinking a lot of water and Gatorade, impossible to estimate what his actual NG tube output. Valle was removed, he is peeing well Vitals/I&O/Wt Last Vital Signs Temp 97.8 F 07/03/22 08:00 Pulse 86 07/03/22 08:00 Resp 18 07/03/22 08:00 BP 152/86 07/03/22 08:00 Pulse Ox 94 07/03/22 08:00 O2 Del Method 07/03/22 08:00 O2 Flow Rate 2 07/01/22 20:00 FiO2 1 07/01/22 16:49 07/02/22 07/03/22 07/03/22 22:59 06:59 14:59 Intake Total 1362.5 / 2342.5 927.5 / 3270.0 1000 / 1000 Output Total 880 / 2080 1720 / 3800 Balance 482.5 / 262.5 -792.5 / -530.0 1000 / 1000 Weight last 48 hrs Weight 213 lb 12.8 oz Physical Exam Narrative: No acute distress. Comfortable. NG tube in place. Slightly bilious output. Unlabored breathing. Abdomen softly distended, tender to palpation around incisions, no peritoneal signs. Bowel sounds are very slow and distant. Drain output is serosanguineous, cloudy bowel sounds significantly more active compared to yesterday. There is minimal erythema around the incision. Marked with a sharpie. Urinary Catheter Management: Valle: Cath Placed During This Visit: yes, but has since been removed by the nurse Reason for Continuing Indwelling Catheter: Decision to DC Catheter Urinary Catheter Date of Insertion: 07/01/22 Urinary Catheter Time of Insertion: 14:15 Date Urinary Catheter Removed: 07/02/22 Time Urinary Catheter Discontinued: 10:09 Data : 07/03/22 02:52 07/03/22 02:52 Micro: Microbiology 07/01/22 14:26 Urine Culture - Final Urine Catheterized 07/02/22 14:00 Urine Culture - Preliminary Urine,Clean Catch 07/01/22 13:03 Blood Culture - Preliminary Blood NEGATIVE TO DATE A&P Assessment and plan (1) Acute appendicitis with rupture: (2) Peritonitis: (3) Ileus due to infection: (4) Acute kidney injury: (5) Acute hypotension: (6) Tachycardia: (7) Hyperlipidemia, mixed: (8) Fibromyalgia muscle pain: (9) Hypertension: Qualifiers: Hypertension type: essential hypertension Qualified Code(s): I10 - Essential (primary) hypertension Plan Continue NG tube, he does have an ileus, abdominal x-ray tomorrow a.m. Minimize meds through the NG tube, will keep only carvedilol and bowel regimen, I will stop all other home meds for now. Bisacodyl per rectum daily Switch from heparin to Lovenox given that kidney function is normal now. Hydralazine as needed for elevated blood pressure, I will hold his losartan right now given already poor compliance with medications from NG tube. Monitor erythema around the umbilicus, if progresses, the wound may need to be open. Labs tomorrow a.m. I have a long conversation with the patient and his family. I explained them that it is is expected given a lot of inflammation in the abdomen. I think it will improve. There is always a chance of intra-abdominal abscess as well as bowel obstruction secondary to adhesions as result of localized peritonitis that he developed secondary to perforated appendicitis. At this time I explained to him that we need to keep NG tube until his abdominal distention improves as well as KUB improves. The patient expressed understanding. He did not eat for several days, however, there is no indications for TPN right now given the possibility that ileus will resolve in a day or 2. Patient has poor compliance overall, it took a lot of time to reinforce his believe and desire to follow orders. 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
[2022-07-03 11:59] VITALS: BP 169/93; PULSE 80; RESP 18; TEMP 36.5; O2SAT 97
[2022-07-03] MEDS: enoxaparin 40 mg/0.4 mL Syringe SUBCUT (14:39)
[2022-07-03 15:42] VITALS: BP 156/92; PULSE 81; RESP 18; TEMP 36.2; O2SAT 92
[2022-07-03] MEDS: docusate sodium 100 mg Capsule PO (17:28)
[2022-07-03 19:44] VITALS: BP 152/81; PULSE 72; RESP 20; TEMP 36.6; O2SAT 95
[2022-07-03] MEDS: pantoprazole 40 mg SDV IVP (20:10)
[2022-07-03] MEDS: sennosides 8.6 mg Tablet 17.2 MG PO (21:48)
[2022-07-04] VITALS: BP 149/84; PULSE 78; RESP 15; TEMP 36.9; O2SAT 93
[2022-07-04] MEDS: sodium chloride 0.9% 1,000 ML 125 ML IV ×3 (01:27→22:15)
[2022-07-04] MEDS: piperacillin-tazobactam 3.375 GM in sodium chloride 0.9% (plus) 50 ML IV ×3 (01:27→21:05)
[2022-07-04 03:49] VITALS: BP 155/90; PULSE 80; RESP 15; TEMP 36.7; O2SAT 96
[2022-07-04] MEDS: carvedilol 25 mg Tablet PO ×2 (04:46→17:37)
--- NOTE | 2022-07-04 06:00 | XRR_ITS ---
PROCEDURE INFORMATION: Exam: XR Abdomen Exam date and time: 07/04/2022 5:13 AM Age: 51 years old Clinical indication: Condition or disease; Other: Ileus TECHNIQUE: Imaging protocol: Radiologic exam of the abdomen. Views: Frontal supine view of the abdomen. 1 View. COMPARISON: CR (ABDOMEN, ) 07/03/2022 6:03 AM FINDINGS: Tubes, catheters and devices: Termination of feeding tube in the lateral stomach. Surgical drain overlying the pelvis. Gastrointestinal tract: Marked disproportionate small bowel dilatation, in a pattern worrisome for small bowel obstruction. Intraperitoneal space: Incomplete visualization of the right lateral abdomen. Bones/joints: Mild degenerative change. XR/XR abdomen 1V* [id number] IMPRESSION: Marked disproportionate small bowel dilatation, in a pattern worrisome for small bowel obstruction.
[2022-07-04 07:22] LABS: Basophils % 0.3 %; Eosinophils # 0.5 10^3/uL (0.0-0.8); Eosinophils % 3.6 %; Hematocrit 36.5 % (42.0-52.0); Hemoglobin 12.2 g/dL (11.7-16.6); Lymphocytes # 1.9 10^3/uL (0.8-4.8); Lymphocytes % 13.5 %; Mean Corpuscular HGB Conc 33.4 g/dL (30.0-36.0); Mean Corpuscular Hemoglobin 31.8 pg (28.0-34.0); Mean Corpuscular Volume 95.1 fl (80-94); Mean Platelet Volume 10.6 fL (7.4-10.4); Monocytes # 1.3 10^3/uL (0.2-0.9); Monocytes % 8.9 %; Neutrophils # 10.45 10^3/uL (1.8-7.7); Neutrophils % 73.1 %; Nucleated Red Blood Cells % 0 %; Platelet Count 345 10^3/cmm (130-400); Red Blood Count 3.84 10^6/uL (4.1-5.3); Red Cell Distribution Width 13.6 % (12.1-15.1); White Blood Count 14.3 10^3/uL (4.0-10.0)
[2022-07-04 07:32] LABS: Anion Gap 13.9 (5-19); Blood Urea Nitrogen 28 mg/dL (6-20); Calcium 8.6 mg/dL (8.5-10.5); Carbon Dioxide 26 mmol/L (22-29); Chloride 106 mmol/L (98-107); Glomerular Filtration Rate 102.7 mL/min (90-130); Glucose 94 mg/dL (65-115); Magnesium 2.2 mg/dL (1.7-2.3); Osmolality Calculated 299 mOsm/kg (285-295); Phosphorus 2.5 mg/dL (2.5-4.5); Potassium 3.9 mmol/L (3.5-5.1); Sodium 142 mmol/L (136-145)
[2022-07-04 08:00] VITALS: BP 156/84; PULSE 79; RESP 16; TEMP 36.8; O2SAT 94
--- NOTE | 2022-07-04 08:03 | P.PN_ITS ---
Subjective Subjective: Pain controlled. Passing flatus. No BM Vitals/I&O/Wt Last Vital Signs Temp 98.0 F 07/04/22 03:49 Pulse 80 07/04/22 03:49 Resp 15 07/04/22 03:49 BP 155/90 07/04/22 03:49 Pulse Ox 96 07/04/22 03:49 O2 Del Method 07/04/22 03:49 O2 Flow Rate 2 07/01/22 20:00 FiO2 1 07/01/22 16:49 07/03/22 07/04/22 07/04/22 22:59 06:59 14:59 Intake Total 1050 / 2100 50 / 2150 Output Total 1650 / 1650 Balance 1050 / 2100 -1600 / 500 Physical Exam Narrative: Gen: NAD, AAOx3 Abd: S, mod D, appropriately tender, no g/r/m Incisions intact without erythema/exudate Drain: Serous Urinary Catheter Management: Valle: Cath Placed During This Visit: yes, but has since been removed by the nurse Reason for Continuing Indwelling Catheter: Decision to DC Catheter Urinary Catheter Date of Insertion: 07/01/22 Urinary Catheter Time of Insertion: 14:15 Date Urinary Catheter Removed: 07/02/22 Time Urinary Catheter Discontinued: 10:09 Data : 07/04/22 07:06 07/04/22 07:06 Micro: Microbiology 07/01/22 14:26 Urine Culture - Final Urine Catheterized 07/02/22 14:00 Urine Culture - Preliminary Urine,Clean Catch A&P Assessment and plan (1) Acute appendicitis with rupture: (2) Peritonitis: (3) Ileus due to infection: (4) Acute kidney injury: (5) Acute hypotension: (6) Tachycardia: (7) Hyperlipidemia, mixed: (8) Fibromyalgia muscle pain: (9) Hypertension: Qualifiers: Hypertension type: essential hypertension Qualified Code(s): I10 - Essential (primary) hypertension Plan DC NGT Clear liquids hydralyzine daily labs Attestations Medical Necessity Statement*: Patient requires at least one more night in the hospital for IV antibiotics Coding Level of Care Code 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
[2022-07-04] MEDS: docusate sodium 100 mg Capsule PO ×2 (08:42→17:37)
[2022-07-04 12:00] VITALS: BP 145/89; PULSE 74; RESP 16; TEMP 36.6; O2SAT 95
[2022-07-04] MEDS: enoxaparin 40 mg/0.4 mL Syringe SUBCUT (14:07)
[2022-07-04 16:00] VITALS: BP 161/86; PULSE 73; RESP 16; TEMP 36.9; O2SAT 94
[2022-07-04 20:00] VITALS: BP 149/86; PULSE 71; RESP 20; TEMP 36.3; O2SAT 95
[2022-07-04] MEDS: sennosides 8.6 mg Tablet 17.2 MG PO (21:06)
[2022-07-04] MEDS: pantoprazole 40 mg SDV IVP (21:16)
[2022-07-05] VITALS: BP 144/83; PULSE 72; RESP 20; TEMP 36.5; O2SAT 93
[2022-07-05 02:58] LABS: Basophils # 0.1 10^3/uL (0.0-0.1); Basophils % 0.4 %; Eosinophils # 0.6 10^3/uL (0.0-0.8); Eosinophils % 4.3 %; Hematocrit 36.8 % (42.0-52.0); Hemoglobin 12.3 g/dL (11.7-16.6); Lymphocytes # 2.8 10^3/uL (0.8-4.8); Lymphocytes % 19.7 %; Mean Corpuscular HGB Conc 33.4 g/dL (30.0-36.0); Mean Corpuscular Hemoglobin 31.8 pg (28.0-34.0); Mean Corpuscular Volume 95.1 fl (80-94); Mean Platelet Volume 11.2 fL (7.4-10.4); Monocytes % 7.3 %; Neutrophils # 9.44 10^3/uL (1.8-7.7); Neutrophils % 67.2 %; Nucleated Red Blood Cells % 0 %; Platelet Count 333 10^3/cmm (130-400); Positive M 1; Red Blood Count 3.87 10^6/uL (4.1-5.3); Red Cell Distribution Width 13.3 % (12.1-15.1); White Blood Count 14.1 10^3/uL (4.0-10.0)
[2022-07-05 03:20] LABS: Slide Review Slide Review Perform
[2022-07-05 03:27] LABS: Anion Gap 13.7 (5-19); Blood Urea Nitrogen 18 mg/dL (6-20); Calcium 8.3 mg/dL (8.5-10.5); Carbon Dioxide 24 mmol/L (22-29); Chloride 104 mmol/L (98-107); Glomerular Filtration Rate 102.7 mL/min (90-130); Glucose 111 mg/dL (65-115); Osmolality Calculated 289 mOsm/kg (285-295); Potassium 3.7 mmol/L (3.5-5.1); Sodium 138 mmol/L (136-145)
[2022-07-05 04:00] VITALS: BP 154/93; PULSE 73; RESP 24; TEMP 36.7; O2SAT 93
[2022-07-05] MEDS: carvedilol 25 mg Tablet PO ×2 (04:33→18:39)
[2022-07-05] MEDS: piperacillin-tazobactam 3.375 GM in sodium chloride 0.9% (plus) 50 ML IV ×3 (04:34→20:26)
--- NOTE | 2022-07-05 06:00 | XRR_ITS ---
PROCEDURE INFORMATION: Exam: XR Abdomen Exam date and time: 07/05/2022 6:06 AM Age: 51 years old Clinical indication: Constipation; Additional info: Ileus TECHNIQUE: Imaging protocol: Radiologic exam of the abdomen. Views: Frontal supine view of the abdomen. 1 View. COMPARISON: CR (ABDOMEN, ) 07/04/2022 5:13 AM FINDINGS: Tubes, catheters and devices: Surgical drain/catheter in the pelvis. Nasogastric tube no longer visualized. Gastrointestinal tract: Numerous loops of air filled small bowel within the midabdomen in a staircase configuration suggestive of at least a partial small bowel obstruction. Previously noted. No significant change. Bones/joints: Unremarkable. XR/XR abdomen 1V* [id number] IMPRESSION: 1. Numerous loops of air filled small bowel within the midabdomen in a staircase configuration suggestive of at least a partial small bowel obstruction. Previously noted. No significant change. Please refer to the CT abdomen and pelvis dated 07-01-22. Possible postoperative ileus. 2. Nasogastric tube no longer visualized.
[2022-07-05 07:30] VITALS: BP 138/88; PULSE 71; RESP 20; TEMP 36.7; O2SAT 93
[2022-07-05] MEDS: docusate sodium 100 mg Capsule PO ×2 (09:46→18:39)
[2022-07-05 10:53] VITALS: BP 150/78; PULSE 69; RESP 20; TEMP 36.7; O2SAT 96
[2022-07-05] MEDS: enoxaparin 40 mg/0.4 mL Syringe SUBCUT (12:44)
[2022-07-05 16:00] VITALS: BP 136/75; PULSE 70; RESP 20; TEMP 36.4; O2SAT 95
--- NOTE | 2022-07-05 16:00 | PM.PN ---
Subjective Subjective: Late entry-patient examined on 07/05/2022. pain controlled. Passing flatus. +bm Vitals/I&O/Wt Last Vital Signs Temp 97.8 F 07/06/22 08:00 Pulse 65 07/06/22 08:00 Resp 16 07/06/22 08:00 BP 149/79 07/06/22 08:00 Pulse Ox 96 07/06/22 08:00 O2 Del Method 07/06/22 08:00 O2 Flow Rate 2 07/01/22 20:00 FiO2 1 07/01/22 16:49 07/05/22 07/06/22 07/06/22 22:59 06:59 14:59 Intake Total 350 / 1590 50 / 1640 50 / 50 Output Total Balance 350 / 1590 30 / 1620 50 / 50 Physical Exam Narrative: Gen: NAD, AAOx3 Abd: S, mod D, appropriately tender, no g/r/m Incisions intact without erythema/exudate Drain: Serous Urinary Catheter Management: Valle: Cath Placed During This Visit: yes, but has since been removed by the nurse Reason for Continuing Indwelling Catheter: Decision to DC Catheter Urinary Catheter Date of Insertion: 07/01/22 Urinary Catheter Time of Insertion: 14:15 Date Urinary Catheter Removed: 07/02/22 Time Urinary Catheter Discontinued: 10:09 Data : 07/05/22 02:22 07/05/22 02:22 Micro: Microbiology 07/01/22 13:03 Blood Culture - Final Blood NO GROWTH AFTER 5 DAYS A&P Assessment and plan (1) Acute appendicitis with rupture: (2) Peritonitis: (3) Ileus due to infection: (4) Acute kidney injury: (5) Acute hypotension: (6) Tachycardia: (7) Hyperlipidemia, mixed: (8) Fibromyalgia muscle pain: (9) Hypertension: Qualifiers: Hypertension type: essential hypertension Qualified Code(s): I10 - Essential (primary) hypertension Plan Full liquids Antibiotics hydralyzine daily labs Attestations Medical Necessity Statement*: Patient will likely be discharged home tomorrow after 1 more night of IV antibiotics Coding Level of Care Code 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
[2022-07-05 20:00] VITALS: BP 155/93; PULSE 73; RESP 24; TEMP 36.8; O2SAT 98
[2022-07-05] MEDS: sennosides 8.6 mg Tablet 17.2 MG PO (20:26)
[2022-07-05] MEDS: pantoprazole 40 mg SDV IVP (20:26)
[2022-07-06] VITALS: BP 141/87; PULSE 68; RESP 22; TEMP 36.2; O2SAT 99
[2022-07-06 04:00] VITALS: BP 155/83; PULSE 73; RESP 18; TEMP 36.6; O2SAT 94
[2022-07-06] MEDS: carvedilol 25 mg Tablet PO (04:30)
[2022-07-06] MEDS: piperacillin-tazobactam 3.375 GM in sodium chloride 0.9% (plus) 50 ML IV ×2 (04:30→13:36)
[2022-07-06 08:00] VITALS: BP 149/79; PULSE 65; RESP 16; TEMP 36.6; O2SAT 96
[2022-07-06] MEDS: docusate sodium 100 mg Capsule PO (08:37)
[2022-07-06 12:00] VITALS: BP 123/74; PULSE 73; RESP 16; TEMP 36.6; O2SAT 95
[2022-07-06] MEDS: enoxaparin 40 mg/0.4 mL Syringe SUBCUT (13:35)
--- NOTE | 2022-07-06 14:02 | P.DS_ITS ---
Discharge Providers Date of Admission: 07/01/22 15:59 Date of Discharge: July 06, 2022 Attending Provider at Admission: Jc Trujillo MD Attending Provider at Discharge: Jc Trujillo MD Primary Care Provider: IVANA Diaz Diagnoses at Discharge Discharge Diagnosis (1) Acute appendicitis with rupture: Status: Acute (2) Peritonitis: Status: Acute (3) Ileus due to infection: Status: Acute (4) Acute kidney injury: Status: Resolved (5) Acute hypotension: Status: Resolved (6) Tachycardia: Status: Resolved (7) Hyperlipidemia, mixed: Status: Chronic (8) Fibromyalgia muscle pain: Status: Chronic (9) Hypertension: Status: Chronic Qualifiers: Hypertension type: essential hypertension Qualified Code(s): I10 - Essential (primary) hypertension Reason for Visit Reason for Visit: no bwel moment and has not eaten since Monday. Hospital Course Hospital Course Patient presented to the hospital with perforated appendicitis. Who underwent laparoscopic appendectomy. He stayed 5 days for IV antibiotics and was discharged home in good condition Physical Exam Narrative: Gen: NAD, AAOx3 Abd: S, mod D, appropriately tender, no g/r/m Incisions intact without erythema/exudate Drain: Serous Urinary Catheter Management: Valle: Cath Placed During This Visit: yes, but has since been removed by the nurse Reason for Continuing Indwelling Catheter: Decision to DC Catheter Urinary Catheter Date of Insertion: 07/01/22 Urinary Catheter Time of Insertion: 14:15 Date Urinary Catheter Removed: 07/02/22 Time Urinary Catheter Discontinued: 10:09 Discharge Data Studies Completed and Pending Completed Studies During Hospitalization Category Date Time Status CT abdomen pelvis wo con [id number] Stat Cat Scan 07/01/22 10:14 Completed XR abdomen 1V* [id number] Routine Exams 07/03/22 06:00 Completed XR abdomen 1V* [id number] Routine Exams 07/04/22 06:00 Completed XR abdomen 1V* [id number] Routine Exams 07/05/22 06:00 Completed XR abdomen 1V* [id number] Stat Exams 07/01/22 16:16 Completed XR abdomen 1V* [id number] Stat Exams 07/02/22 07:12 Completed Pathology: Surgical [PTH] Routine Pth 07/01/22 16:15 Completed Radiology Impressions Abdomen/Pelvis CT 07/01/22 10:14 IMPRESSION: 1. Perforated appendicitis RIGHT lower quadrant with surrounding inflammatory stranding and edema. Appendicoliths in the appendix. 2. No well-defined drainable fluid collection or abscess. 3. Proximal small bowel dilatation with air-fluid levels likely reactive adynamic ileus. Small bowel measures up to 3.9 cm in maximum dimension. Distal ileum appears decompressed. 4. Compressive atelectasis LEFT lower lobe.Correlation for pneumonia. 5. Indeterminant low-attenuation RIGHT renal lesion measuring 10 mm. This is too small to definitively characterize. This can be followed up with ultrasound or contrast-enhanced CT abdomen pelvis. 6. Grade 1 anterolisthesis L5 on S1 with chronic spondylolysis. Notified Paty Siddiqui PA-C at 07/01/2022 11:50 AM. Abdomen X-Ray 07/05/22 06:00 IMPRESSION: 1. Numerous loops of air filled small bowel within the midabdomen in a staircase configuration suggestive of at least a partial small bowel obstruction. Previously noted. No significant change. Please refer to the CT abdomen and pelvis dated 07-01-22. Possible postoperative ileus. 2. Nasogastric tube no longer visualized. Laboratory Results WBC 14.1 10^3/uL (4.0-10.0) H 07/05/22 02:22 RBC 3.87 10^6/uL (4.1-5.3) L 07/05/22 02:22 Hgb 12.3 g/dL (11.7-16.6) 07/05/22 02:22 Hct 36.8 % (42.0-52.0) L 07/05/22 02:22 MCV 95.1 fl (80-94) H 07/05/22 02:22 MCH 31.8 pg (28.0-34.0) 07/05/22 02:22 MCHC 33.4 g/dL (30.0-36.0) 07/05/22 02: RDW 13.3 % (12.1-15.1) 07/05/22 02:22 Plt Count 333 10^3/cmm (130-400) 07/05/22 02:22 MPV 11.2 fL (7.4-10.4) H 07/05/22 02:22 Neut % (Auto) 67.2 % 07/05/22 02:22 Lymph % (Auto) 19.7 % 07/05/22 02:22 [place] % (Auto) 7.3 % 07/05/22 02:22 Eos % (Auto) 4.3 % 07/05/22 02:22 Baso % (Auto) 0.4 % 07/05/22 02:22 Neut # (Auto) 9.44 10^3/uL (1.8-7.7) H 07/05/22 02:22 Lymph # (Auto) 2.8 10^3/uL (0.8-4.8) 07/05/22 02:22 [place] # (Auto) 1.0 10^3/uL (0.2-0.9) H 07/05/22 02:22 Eos # (Auto) 0.6 10^3/uL (0.0-0.8) 07/05/22 02: Baso # (Auto) 0.1 10^3/uL (0.0-0.1) 07/05/22 02: Nucleated RBC % (auto) 0 % 07/05/22 02: Nucleated RBCs # 0.0 /100WBC 07/05/22 02:22 Specimen Type Arterial 07/01/22 11:17 Sample Site Radial, right 07/01/22 11:17 ABG pH 7.43 (7.35-7.45) 07/01/22 11:17 ABG pCO2 33.5 mmHg (35-45) L 07/01/22 11:17 ABG pO2 63.0 mmHg (80.0-100.0) L 07/01/22 11:17 ABG HCO3 22.0 mmol/L (22-26) 07/01/22 11:17 ABG O2 Saturation 92.2 07/01/22 11:17 ABG Base Excess -1.6 mmol/L (-2.0-2.0) 07/01/22 11:17 [place] Test Pos 07/01/22 11:17 A-a O2 Gradient 6.1 mmHg (5-10) 07/01/22 11:17 Hematocrit 48.4 % (42-52) 07/01/22 11:17 Hgb O2 Saturation 90.9 % (95-100) L 07/01/22 11:17 Carboxyhemoglobin 1.2 %THgb (0.4-20.1) 07/01/22 11:17 Methemoglobin 0.2 % (0.4-1.5) L 07/01/22 11:17 Total Hemoglobin 15.8 g/dL (14-18) 07/01/22 11:17 Sodium 137.0 mmol/L (131-143) 07/01/22 11:17 Potassium 3.7 mmol/L (3.5-5.0) 07/01/22 11:17 Glucose 131.0 mg/dL (70-115) H 07/01/22 11:17 Ionized Calcium 1.1 mmol/L (1.1-1.4) 07/01/22 11:17 O2 Delivery Device Room air 07/01/22 11:17 FiO2 21.0 % 07/01/22 11:17 Perinatal Educator ID glc 07/01/22 11:17 Sodium 138 mmol/L (136-145) 07/05/22 02:22 Potassium 3.7 mmol/L (3.5-5.1) 07/05/22 02:22 Chloride 104 mmol/L (98-107) 07/05/22 02:22 Carbon Dioxide 24 mmol/L (22-29) 07/05/22 02:22 Anion Gap 13.7 (5-19) 07/05/22 02:22 BUN 18 mg/dL (6-20) 07/05/22 02:22 Creatinine 0.8 mg/dL (0.7-1.2) 07/05/22 02:22 GFR Calculation 102.7 mL/min (90-130) 07/05/22 02:22 Glucose 111 mg/dL (65-115) 07/05/22 02:22 POC Glucose 112 mg/dL (70-110) H 07/02/22 20:51 Calculated Osmolality 289 mOsm/kg (285-295) 07/05/22 02:22 Lactic Acid 1.8 mmol/L (0.5-2.2) 07/01/22 10:30 Calcium 8.3 mg/dL (8.5-10.5) L 07/05/22 02:22 Phosphorus 2.5 mg/dL (2.5-4.5) 07/04/22 07:06 Magnesium 2.2 mg/dL (1.7-2.3) 07/04/22 07:06 Total Bilirubin 0.5 mg/dL (0.15-1.2) 07/01/22 10:13 AST 8 U/L (0-40) 07/01/22 10:13 ALT 9 U/L (0-41) 07/01/22 10:13 Alkaline Phosphatase 94 U/L (40-130) 07/01/22 10:13 Total Protein 8.7 g/dL (6.6-8.7) 07/01/22 10:13 Albumin 3.7 g/dL (3.5-5.2) 07/01/22 10:13 Globulin 5.0 g/dL (1.3-4.6) H 07/01/22 10:13 Lipase 11 U/L (13-60) L 07/01/22 10:30 Urine Color Yellow (Yellow) 07/02/22 14:00 Urine Appearance Hazy (CLEAR) A 07/02/22 14:00 Urine pH 5 (5-7) 07/02/22 14:00 Ur Specific [place] 1.015 (1.005-1.030) 07/02/22 14:00 Urine Protein Neg (Negative) 07/02/22 14:00 Urine Glucose (UA) Norm (Normal) 07/02/22 14:00 Urine Ketones Negative (Negative) 07/02/22 14:00 Urine Blood 3+ (Negative) H 07/02/22 14:00 Urine Nitrate Negative (Negative) 07/02/22 14:00 Urine Bilirubin Neg (Negative) 07/02/22 14:00 Urine Urobilinogen Neg mg/dL (Negative) 07/02/22 14:00 Ur Leukocyte Esterase 1+ (Negative) H 07/02/22 14:00 Urine RBC 15-25 /hpf (0-2) H 07/02/22 14:00 Urine WBC 15-25 /hpf (0-5) H 07/02/22 14:00 Ur Squamous Epith Cells None /hpf (0-5) 07/02/22 14:00 Amorphous Sediment Not Reportable 07/02/22 14:00 Urine Bacteria None /hpf (NONE) 07/02/22 14:00 Procedures Performed Laparoscopic appendectomy Vitals Last Vital Signs Temp 97.8 F 07/06/22 08:00 Pulse 65 07/06/22 08:00 Resp 16 07/06/22 08:00 BP 149/79 10/12/22 08:00 Pulse Ox 96 07/06/22 08:00 O2 Del Method 07/06/22 08:00 O2 Flow Rate 2 07/01/22 20:00 FiO2 1 07/01/22 16:49 Discharge Plan Discharge Patient Disposition: Home Condition: Stable Prescriptions: New amoxicillin-pot clavulanate 875-125 mg tablet 1 tab PO BID Qty: 18 0RF hydrocodone-acetaminophen 7.5-325 mg tablet 1 tab PO Q8H PRN (Reason: pain) Qty: 10 0RF Continued valsartan [Diovan] 320 mg tablet 320 mg PO DAILY Qty: 90 1RF pregabalin [Lyrica] 100 mg capsule 100 mg PO BID Qty: 180 1RF Savella 50 mg tablet 50 mg PO BID Qty: 180 1RF carvedilol [Coreg] 25 mg tablet 25 mg PO Q12H Qty: 180 1RF Rx Instructions: must administer with a meal/food fenofibrate nanocrystallized [Tricor] 145 mg tablet 145 mg PO DAILY Qty: 90 1RF zinc acetate 25 mg (zinc) Capsule 25 mg PO DAILY Vitamin C 500 mg Tablet 500 mg PO DAILY vitamin B complex Tablet 1 tab PO DAILY Vitamin D3 50 mcg (2,000 unit) Capsule 50 mcg PO DAILY Discharge Orders: Discharge Order (Routine); Ordered 07/06/22 Ordered By: Wili Cardona Referrals: Wili Cardona DO [Physician] - 1 week Val Powres, SENIOR CYTOGENETICS LABORATORY DIRECTOR-C [Primary Care Provider] - 4-7 days Discharge Diet: Advance as tolerated Discharge Activity: Resume usual activity Patient Instructions: Appendicitis (GEN), Opioid Safety, Pain Management Activity Restrictions/Additional Instructions: Do not soak incisions underwater for 2 weeks. Shower daily Discharge Attestations Time Spent in Discharge Care*: less than 30 min Quality Metrics Clinical Quality Measures [ No reported AMI, CVA or VTE this stay] Coding Level of Care Code Acute Chg FW DC note Diagnoses Acute appendicitis with rupture K35.32 Peritonitis K65.9 Ileus due to infection K56.7; B99.9 Acute kidney injury N17.9 Acute hypotension I95.9 Tachycardia R00.0 Hyperlipidemia, mixed E78.2 Fibromyalgia muscle pain M79.7 Hypertension I10 Hypertension type: essential hypertension
--- NOTE | 2022-07-06 14:43 | PC.NURSE ---
LIUDMILA drain and suture removed.
[2022-07-06 14:45] VITALS: BP 123/74; PULSE 73; RESP 16; TEMP 36.6; O2SAT 95
== END 2022-07-06 15:31 | disposition home or self-care (01) | DRG 339 ==
LOC: ER 11:56 → OR 12:14 → MEDSURG 16:38
PROVIDERS: Admitting Provider Surgery; Emergency Provider Physician Assistant; PCP Nurse Practitioner; Visit Provider Surgery
PROC: 0DTJ4ZZ Resection of Appendix, Percutaneous Endoscopic Approach (ICD-10-PCS; CPT 44970; principal; 2022-07-01 12:55)
DX: K35.33 Acute appendicitis with perforation, localized peritonitis, and gangrene, with abscess (principal); K56.7 Ileus, unspecified; N17.9 Acute kidney failure, unspecified; M19.042 Primary osteoarthritis, left hand; M19.041 Primary osteoarthritis, right hand; E78.2 Mixed hyperlipidemia; I10 Essential (primary) hypertension; Z87.891 Personal history of nicotine dependence; I95.9 Hypotension, unspecified; R00.0 Tachycardia, unspecified; M79.7 Fibromyalgia; E86.0 Dehydration; K42.9 Umbilical hernia without obstruction or gangrene
CPT/HCPCS: 12345; 36415; 36416; 36600; 51702; 74018; 74176; 80048; 80051; 80053; 81001; 82330; 82805; 82962; 83605; 83690; 83735; 84100; 85025; 87040; 87086; 88304; 96365; 96372; 96375; 96376; 99285; C9113; J0330; J1100; J1170; J1644; J1650; J2370; J2405; J2543; J2704; J3010; J3490; J7030; Q9967

== ENCOUNTER → 2022-07-13 10:14 | Outpatient (BNVA) | payer BC, SELFPAY | PROVIDERS: PCP Nurse Practitioner; Visit Provider Nurse Practitioner | DX: D72.829 Elevated white blood cell count, unspecified (principal) | CPT/HCPCS: 81000; 85025 ==

== ENCOUNTER → 2022-07-25 14:04 | Outpatient (BNVA) | payer BC, SELFPAY | PROVIDERS: PCP Nurse Practitioner; Visit Provider Nurse Practitioner Family | DX: A08.4 Viral intestinal infection, unspecified (principal) | CPT/HCPCS: 85025 ==

== ENCOUNTER → 2022-07-27 10:11 | Outpatient (BNVA) | payer BC, SELFPAY | PROVIDERS: PCP Nurse Practitioner; Visit Provider Nurse Practitioner | DX: A08.4 Viral intestinal infection, unspecified (principal) | CPT/HCPCS: 87506 ==

== ENCOUNTER 2022-10-03 11:54 | Outpatient (CLI) | payer BC, SELFPAY ==
[2022-10-03] MEDS: iohexol 350 mg/mL 500 mL Btl (per mL) PO (13:15)
[2022-10-03] MEDS: iohexol 350 mg/mL 500 mL Btl (per mL) IV (13:45)
--- NOTE | 2022-10-03 13:45 | CTR_ITS ---
PROCEDURE INFORMATION: Exam: CT Abdomen And Pelvis With Contrast Exam date and time: 10/03/2022 1:41 PM Age: 51 years old Clinical indication: Abnormal findings; Abnormal radiologic finding of the abdomen; Radiologic exam and body structure: CT abd, renal; Prior surgery; Surgery type: Appendix; Patient HX: F/u RT renal lesion measuring 10mm from prior CT; Additional info: R93.89 - abnormal findings on diagnostic imaging of other. . . TECHNIQUE: Imaging protocol: Computed tomography of the abdomen and pelvis with contrast. Radiation optimization: All CT scans at this facility use at least one of these dose optimization techniques: automated exposure control; mA and/or kV adjustment per patient size (includes targeted exams where dose is matched to clinical indication); or iterative reconstruction. Contrast material: OMNI 350; Contrast volume: 95 ml; Contrast route: INTRAVENOUS (IV); COMPARISON: CT abdomen pelvis wo con [id number] 07/01/2022 11:27 AM RADIATION DOSE METRICS: Total DLP (mGy-cm): 790.77 FINDINGS: Lungs: Left lower lobe calcified granuloma. Liver: Normal. No mass. Gallbladder and bile ducts: Normal. No calcified stones. No ductal dilation. Pancreas: Normal. No ductal dilation. Spleen: Calcified granulomas in the spleen. Adrenal glands: Normal. No mass. Kidneys and ureters: 1.2 cm round hypodense lesion in the anterior right kidney, Hounsfield units 23. This measured less than 20 Hounsfield units on the prior noncontrast study. Stomach and bowel: Unremarkable. No obstruction. No mucosal thickening. Appendix: The appendix is absent. Intraperitoneal space: Unremarkable. No free air. No significant fluid collection. Vasculature: Small amount of intravenous gas in the cardiac right ventricle. Circumaortic left renal veins. Lymph nodes: Unremarkable. No enlarged lymph nodes. Urinary bladder: Unremarkable as visualized. Reproductive: Unremarkable as visualized. Bones/joints: Chronic bilateral L5 pars fractures with trace anterior subluxation. No acute fracture. Small bone island in the left iliac bone. Soft tissues: Small fat containing left inguinal hernia. CT/CT abdomen pelvis w con* [id number] IMPRESSION: 1. No acute findings. 2. 1.2 cm round hypodense lesion in the right kidney is most likely a benign cyst and measured less than 20 Hounsfield units on the prior noncontrast study. Evaluation is limited by a slice thickness of 5 mm. Requests were made for thinner slices which were not received. If the additional images are made available, an addendum will be added.
== END 2022-10-03 11:55 | disposition home or self-care (01) ==
LOC: RAD 11:55
PROVIDERS: PCP Nurse Practitioner; Visit Provider Nurse Practitioner
DX: R93.89 Abnormal findings on diagnostic imaging of other specified body structures (principal)
CPT/HCPCS: 74177; 80053; 80061; Q9967

== ENCOUNTER → 2023-03-20 08:53 | Outpatient (BNVA) | payer BC, SELFPAY | PROVIDERS: PCP Nurse Practitioner; Visit Provider Nurse Practitioner | DX: I10 Essential (primary) hypertension (principal) | CPT/HCPCS: 80053; 80061 ==